=== PATIENT | female | born 1935 | race Caucasian/White ===

== ENCOUNTER → 2017-04-23 | Outpatient (CLI) | payer MEDICARE, OTHER ==
[~2017-04-23] MED LIST: ASPIRIN LO-DOSE81 MG PO; CENTRUM SILVER1 EAC4 PO; CITRACAL+D(315M1 TAB PO; FOSINOPRIL SODI20 MG PO; K-TAB 10MEQ10 MEQ PO; LASIX20 MG PO; LASIX40 MG; LIBRIUM10 MG PO; LIPITOR10 MG PO; MAG-OX-400(241400 MG PO; TAZTIA XT360 MG PO; TEKTURNA300 MG PO; TOPROL XL100 MG PO; TYLENOL EXTRA500 MG PO; XARELTO15 MG PO
== END | disposition disaster alternative care site (69) ==
LOC: GAMB 18:47
DX: I10 Essential (primary) hypertension (principal); I48.2 Chronic atrial fibrillation; I95.9 Hypotension, unspecified; R07.89 Other chest pain; Z79.01 Long term (current) use of anticoagulants; Z79.899 Other long term (current) drug therapy
CPT/HCPCS: A0425; A0427

== ENCOUNTER → 2017-05-25 | Outpatient (CLI) | payer MEDICARE, OTHER | END | disposition disaster alternative care site (69) | LOC: GAMB 12:38 | DX: R10.84 Generalized abdominal pain (principal); I48.2 Chronic atrial fibrillation; I10 Essential (primary) hypertension; R63.0 Anorexia; R06.02 Shortness of breath; R11.0 Nausea; Z79.899 Other long term (current) drug therapy | CPT/HCPCS: A0425; A0427; J2405 ==